=== PATIENT | female | born 2000 | race Caucasian/White ===

== ENCOUNTER 2019-02-13 05:37 | Outpatient (CLI) | payer BC ==
[~2019-02-13] VITALS: Ht 167.6 cm; Wt 81.2 kg
== END 2019-02-13 13:10 | disposition home or self-care (01) ==
LOC: PREOP 05:37
PROVIDERS: ATTEND Otolaryngology Otolaryngology/Facial Plastic Surgery
DX: Z01.818 Encounter for other preprocedural examination (principal)

== ENCOUNTER 2019-02-20 07:54 | Day surgery (SDC) | payer BC ==
[~2019-02-20] VITALS: Ht 167.6 cm; Wt 81.2 kg
[2019-02-20] VITALS (11 sets, daily range): BP systolic 100–135; BP diastolic 69–95
[2019-02-20] MEDS ORDERED: AMPICILLIN/SULBACTAM INJECTION 1.5 GM in NS (IVPB) 100 ML IV ONE (08:15)
[2019-02-20] MEDS ORDERED: MIDAZOLAM 2 MG/2 ML (VERSED) VIAL ONE (08:54)
[2019-02-20] MEDS ORDERED: DEXAMETHASONE 10 MG/ML (DECADRON) 1 ML VIAL ONE (09:02)
[2019-02-20] MEDS ORDERED: LIDOCAINE PF 2% 5 ML (XYLOCAINE) VIAL ONE (09:02)
[2019-02-20] MEDS ORDERED: fentaNYL INJECTION 100 MCG/2 ML AMP ONE (09:02)
[2019-02-20] MEDS ORDERED: ONDANSETRON 4 MG/2 ML (SDV) Z0FRAN ONE ×2 (09:02→10:02)
[2019-02-20] MEDS ORDERED: ROCURONIUM 10 MG/ML 5 ML SYRINGE IV ONE (09:02)
[2019-02-20] MEDS ORDERED: proPOfol 200 MG/20 ML (DIPRIVAN) VIAL IV ONE (09:02)
[2019-02-20] MEDS ORDERED: SEVOFLURANE (ULTANE) 15 ML INHAL SOLN ONE (09:02)
[2019-02-20] MEDS ORDERED: LACTATED RINGERS 1,000 ML IV PRN (09:03)
[2019-02-20] MEDS ORDERED: MIDAZOLAM 2 MG/2 ML (VERSED) VIAL IV ONE (09:15)
[2019-02-20 09:53] LABS: MEAN PLATELET VOLUME 9.1 FL (7.4-10.4); RED CELL DISTRIBUTION WIDTH 12.5 % (10.0-14.5); WHITE BLOOD COUNT 11.3 10^3/uL (4.3-11.0)
[2019-02-20] MEDS ORDERED: NEOSTIGMINE 1 MG/ML 5 ML SYRINGE ONE (09:53)
[2019-02-20] MEDS ORDERED: GLYCOPYRROLATE 0.2 MG/ML (ROBINUL) 2 ML VIAL ONE (09:53)
[2019-02-20] MEDS ORDERED: morphine INJ 10 MG/ML 1ML (SYR OR VIAL) ONE (10:02)
[2019-02-20] MEDS ORDERED: NS IV 1000 ML 1,000 ML IV SCH (10:17)
--- NOTE | 2019-02-20 10:17 | Progress Note-Pre Operative ---
Pre-Operative Progress Note H&P Reviewed The H&P was reviewed, patient examined and no changes noted. Date Seen by Provider: February 20, 2019 Time Seen by Provider: : Date H&P Reviewed: February 20, 2019 Time H&P Reviewed: : Pre-Operative Diagnosis: Rec Tons/ T/A hyper with UAO ANTELMO LAZO MD February 20, 2019 10:17
[2019-02-20] MEDS ORDERED: APAP 325 MG/10.15 ML LIQ (TYLENOL) UDC PO PRN (10:30)
[2019-02-20] MEDS ORDERED: morphine INJ 10 MG/ML 1ML (SYR OR VIAL) IVP ONE (10:30)
[2019-02-20] MEDS ORDERED: HYDROcodone/APAP 7.5MG-325 MG/15 ML (LORTAB) UDC PO PRN (10:30)
[2019-02-20] MEDS ORDERED: ONDANSETRON 4 MG/2 ML (SDV) Z0FRAN IVP PRN (10:30)
--- OUTSIDE RECORDS SUMMARY | 2019-02-20 12:14 | XMS REPORT | Continuity of Care Document ---
Author Organization Unknown Address Unknown Allergies Active Description Code Type Severity Reaction Onset Reported/Identified Relationship to Patient Clinical Status Yes No Known Drug Allergies [id number] Drug Allergy Unknown N/A 02/13/2019 Medications There is no data. Problems Date Dx Coded Attending Type Code Diagnosis Diagnosed By 02/13/2019 ANTELMO LAZO MD Ot Z01.818 ENCOUNTER FOR OTHER PREPROCEDURAL EXAMIN 02/14/2019 ANTELMO LAZO MD Ot Z01.818 ENCOUNTER FOR OTHER PREPROCEDURAL EXAMIN Procedures There is no data. Results There is no data. Encounters ACCT No. Visit Date/Time Discharge Status Pt. Type Provider Facility Loc./Unit Complaint [id number] 02/13/2019 05:37:00 02/13/2019 13:10:00 DIS Outpatient ANTELMO LAZO MD [facility] PREOP T A [id number] 02/20/2019 07:54:00 ACT Outpatient ANTELMO LAZO MD [facility] SD[facility]PERTR[facility]HY
[2019-02-20] MEDS ORDERED: DEXAINTSOL PO (12:29)
[2019-02-20] MEDS ORDERED: TETRACAINESUCKERS MT (12:29)
[2019-02-20] MEDS ORDERED: AMOX250S5 PO (12:29)
[2019-02-20] MEDS ORDERED: HYDR15SO8 PO (12:29)
--- NOTE | 2019-02-20 14:16 | Anesthesia-General Post-Op ---
General Patient Condition Mental Status/LOC: Same as Preop Cardiovascular: Satisfactory Nausea/Vomiting: Absent Respiratory: Satisfactory Pain: Controlled Complications: Absent Post Op Complications Complications None Follow Up Care/Instructions Patient Instructions None needed. Anesthesia/Patient Condition Patient Condition Patient is doing well, no complaints, stable vital signs, no apparent adverse anesthesia problems. No complications reported per nursing. D/C home per [facility] Criteria: Yes [place] CRNA February 20, 2019 14:16
== END 2019-02-20 13:15 | disposition home or self-care (01) ==
LOC: SDC 07:54
PROVIDERS: ATTEND Otolaryngology Otolaryngology/Facial Plastic Surgery
DX: J03.91 Acute recurrent tonsillitis, unspecified (principal); J35.3 Hypertrophy of tonsils with hypertrophy of adenoids; D58.0 Hereditary spherocytosis
CPT/HCPCS: 36415; 84703; 85027; 87081